=== PATIENT | male | born 1985 | race Caucasian/White ===

== ENCOUNTER 2022-05-05 12:30 | Emergency (ER) | payer SELFPAY ==
[2022-05-05 12:47] VITALS: BP 120/79; PULSE 67; RESP 16; TEMP 36.9; O2SAT 98; BMI 22.8
--- NOTE | 2022-05-05 13:07 | W.ED.PSYCHS ---
HPI - Psych General: Chief Complaint: Psychiatric Symptoms Stated Complaint: Psych eval Time Seen by Provider: 05/05/22 12:57 Source: patient and family Mode of arrival: ambulatory Limitations: no limitations History of Present Illness: Patient is a 36-year-old male who presents to ED today requesting a psychiatric evaluation for depression and what he refers to as psychosis. Patient tells me he has a longstanding history of depression. He states he is sleeping more and is having trouble with emotional lability. Patient states he is not currently suicidal or homicidal but has had thoughts of suicide over the past few weeks. He states he never had a specific plan and has never acted on suicidal thoughts previously. He states he is hearing sounds that he feels like other people cannot hear such as ringing and buzzing. Significant other in the room states he also hears words in conversations that were not spoken. He states he sees shadows of people and thinks crawling on the floor. Patient states at one point he was on medications for these issues but has not been in several years. MD complaint: other (depression, hallucinations ) History of same: Yes Relieving factors: none Exacerbating factors: none Associated symptoms: Reports auditory hallucinations, visual hallucinations and depression; Deny homicidal ideation or suicidal ideation Treatments prior to arrival: none If self harm: admits thoughts of self harm (some over the past few weeks; none currently) Review of Systems Const: Denies: fever(s) or chills Card: Denies: chest pain, palpitations, lightheadedness or syncope Resp: Denies: dyspnea GI: Denies: abdominal pain, nausea, vomiting or diarrhea Skin/Breast: Denies: rash Neuro: Denies: headache(s) Psych: Reports: depression, mood swings, sleeping more, hopelessness, visual hallucinations and auditory hallucinations; Denies: anxiety, suicidal ideation or homicidal ideation Physical Exam Const: COMMON NORMALS: no acute distress, average body habitus, patient oriented x3, no limitations, alert and well nourished GENERAL APPEARANCE: cooperative and well kempt ORIENTATION/CONSCIOUSNESS: Yes awake, Yes oriented to person, Yes oriented to place and Yes oriented to time Resp: COMMON NORMALS: normal respiratory effort and clear to auscultation bilaterally AUSCULTATION: clear to auscultation bilaterally Cardio: COMMON NORMALS: regular rate and regular rhythm RATE: regular rate RHYTHM: regular rhythm Neuro: COMMON NORMALS: patient oriented x3 SENSORIUM/ORIENTATION: Yes alert, Yes oriented to person, Yes oriented to place and Yes oriented to time Psych: COMMON NORMALS: mental status grossly normal, Normal thought process present, cooperative, speech normal, activity/motor behavior normal, denies homicidal ideation and denies suicidal ideation APPEARANCE: Yes grossly normal and Yes well kempt ATTITUDE: Yes calm ACTIVITY/MOTOR BEHAVIOR: Yes appropriate eye contact and No psychomotor agitation SPEECH: Yes normal speech MOOD & AFFECT: Yes Flat affect present THOUGHT PROCESS: Normal thought process present THOUGHT CONTENT: Yes Normal thought content present ATTENTION/CONCENTRATION: Yes attention grossly intact and Yes concentration grossly intact MEMORY/COGNITION: Yes memory grossly intact and Yes cognition grossly intact INSIGHT: Good insight present (Psych) JUDGEMENT: Good judgement present (Psych) Skin: COMMON NORMALS: no rashes or lesions noted GENERAL SKIN EXAM: no rashes or lesions noted Course Consultations: Consultation #1: Dr. Quijano-will do a phone consult on patient to assess risk of his previous SI/HI thoughts Vital Signs: Vital signs: Vital Signs Temperature 98.4 F 05/05/22 12:47 Pulse Rate 67 05/05/22 12:47 Respiratory Rate 16 05/05/22 12:47 Blood Pressure 120/79 05/05/22 12:47 Pulse Oximetry 98 05/05/22 12:47 [facility] - Psych Medical Decision Making Patient is a 36-year-old male here for complaints of depression and hallucinations. Patient told the open developer operator that he was not suicidal or homicidal. He confirmed this to me as well but did mention he had had these thoughts over the past few weeks. He has never acted on previous suicidal or homicidal thoughts. He has no high risk behaviors. I did consult with Dr. Quijano as patient initially wanted to be a voluntary admit to NPU. We were trying to assess the NPU bed situation to see if we could accommodate patient and in the meantime patient changed his mind and wanted to leave. Because of the SI/HI thoughts he has had over the past few weeks I did consult Dr. Quijano and request that he speak to the patient to make sure he thought he was stable to leave. Dr. Quijano was able to perform phone consult on patient (please see his specific note) and felt patient was not an imminent danger to himself or others at this time. Patient is free to leave the ED and he did so quickly after Dr. Quijano's consult. Lab Data : 05/05/22 14:12 05/05/22 14:12 Laboratory Results WBC 7.0 10^3/uL (4.0-10.0) 05/05/22 14:12 RBC 5.11 10^6/uL (4.1-5.3) 05/05/22 14:12 Hgb 14.7 g/dL (11.7-16.6) 05/05/22 14:12 Hct 43.3 % (42.0-52.0) 05/05/22 14:12 MCV 84.7 fl (80-94) 05/05/22 14:12 MCH 28.8 pg (28.0-34.0) 05/05/22 14:12 MCHC 33.9 g/dL (30.0-36.0) 05/05/22 14:12 RDW 12.0 % (12.1-15.1) L 05/05/22 14:12 Plt Count 235 10^3/cmm (130-400) 05/05/22 14:12 MPV 10.6 fL (7.4-10.4) H 05/05/22 14:12 Neut % (Auto) 70.5 % 05/05/22 14:12 Lymph % (Auto) 19.4 % 05/05/22 14:12 [place] % (Auto) 6.3 % 05/05/22 14:12 Eos % (Auto) 2.6 % 05/05/22 14:12 Baso % (Auto) 1.1 % 05/05/22 14:12 Neut # (Auto) 4.94 10^3/uL (1.8-7.7) 05/05/22 14:12 Lymph # (Auto) 1.4 10^3/uL (0.8-4.8) 05/05/22 14:12 [place] # (Auto) 0.4 10^3/uL (0.2-0.9) 05/05/22 14:12 Eos # (Auto) 0.2 10^3/uL (0.0-0.8) 05/05/22 14:12 Baso # (Auto) 0.1 10^3/uL (0.0-0.1) 05/05/22 14:12 Nucleated RBC % (auto) 0 % 05/05/22 14:12 Nucleated RBCs # 0.0 /100WBC 05/05/22 14:12 Sodium 138 mmol/L (136-145) 05/05/22 14:12 Potassium 4.2 mmol/L (3.5-5.1) 05/05/22 14:12 Chloride 103 mmol/L (98-107) 05/05/22 14:12 Carbon Dioxide 26 mmol/L (22-29) 05/05/22 14:12 Anion Gap 13.2 (5-19) 05/05/22 14:12 BUN 9 mg/dL (6-20) 05/05/22 14:12 Creatinine 0.9 mg/dL (0.7-1.2) 05/05/22 14:12 GFR Calculation 94.4 mL/min (90-130) 05/05/22 14:12 Glucose 94 mg/dL (65-115) 05/05/22 14:12 Calculated Osmolality 284 mOsm/kg (285-295) L 05/05/22 14:12 Calcium 9.4 mg/dL (8.5-10.5) 05/05/22 14:12 Total Bilirubin 0.4 mg/dL (0.15-1.2) 05/05/22 14:12 AST 14 U/L (0-40) 05/05/22 14:12 ALT 14 U/L (0-41) 05/05/22 14:12 Alkaline Phosphatase 103 IU/L (40-130) 05/05/22 14:12 Total Protein 7.8 g/dL (6.6-8.7) 05/05/22 14:12 Albumin 4.8 g/dL (3.5-5.2) 05/05/22 14:12 Globulin 3.0 g/dL (1.3-4.6) 05/05/22 14:12 Salicylates < 0.3 mg/dL (3-10) L 05/05/22 14:12 Urine Opiates Screen Negative ng/mL (Negative) 05/05/22 13:50 Acetaminophen < 5.0 ug/mL (10-30) L 05/05/22 14:12 Ur Barbiturates Screen Negative ng/mL (Negative) 05/05/22 13:50 Ur Phencyclidine Scrn Negative ng/mL (Negative) 05/05/22 13:50 Ur Amphetamines Screen Negative ng/mL (Negative) 05/05/22 13:50 U Benzodiazepines Scrn Negative ng/mL (Negative) 05/05/22 13:50 Urine Cocaine Screen Negative ng/mL (Negative) 05/05/22 13:50 U Marijuana (THC) Screen Negative ng/mL (Negative) 05/05/22 13:50 Ethyl Alcohol < 10 mg/dL (0-10) 05/05/22 14:12 Discharge Plan Discharge Patient Disposition: Left Against Medical Advice Clinical Impression: Depression, Hallucinations Condition: Stable Prescriptions: No Action albuterol sulfate 90 mcg/actuation Hfa Aerosol Inhaler 2 puff INHALATION QID PRN (Reason: Shortness Of Breath) 0RF Coding Level of Care Code ED Stencil Printer for Isatu Fwd Exam Detailed
[2022-05-05 14:21] LABS: Basophils # 0.1 10^3/uL (0.0-0.1); Basophils % 1.1 %; Eosinophils # 0.2 10^3/uL (0.0-0.8); Eosinophils % 2.6 %; Hematocrit 43.3 % (42.0-52.0); Hemoglobin 14.7 g/dL (11.7-16.6); Lymphocytes # 1.4 10^3/uL (0.8-4.8); Lymphocytes % 19.4 %; Mean Corpuscular HGB Conc 33.9 g/dL (30.0-36.0); Mean Corpuscular Hemoglobin 28.8 pg (28.0-34.0); Mean Corpuscular Volume 84.7 fl (80-94); Mean Platelet Volume 10.6 fL (7.4-10.4); Monocytes # 0.4 10^3/uL (0.2-0.9); Monocytes % 6.3 %; Neutrophils # 4.94 10^3/uL (1.8-7.7); Neutrophils % 70.5 %; Nucleated Red Blood Cells % 0 %; Platelet Count 235 10^3/cmm (130-400); Red Blood Count 5.11 10^6/uL (4.1-5.3)
[2022-05-05 14:49] LABS: Alanine Aminotransferase 14 U/L (0-41); Albumin Level 4.8 g/dL (3.5-5.2); Alkaline Phosphatase 103 IU/L (40-130); Anion Gap 13.2 (5-19); Aspartate Amino Transferase 14 U/L (0-40); Blood Urea Nitrogen 9 mg/dL (6-20); Calcium 9.4 mg/dL (8.5-10.5); Carbon Dioxide 26 mmol/L (22-29); Chloride 103 mmol/L (98-107); Glomerular Filtration Rate 94.4 mL/min (90-130); Glucose 94 mg/dL (65-115); Osmolality Calculated 284 mOsm/kg (285-295); Potassium 4.2 mmol/L (3.5-5.1); Sodium 138 mmol/L (136-145); Total Bilirubin 0.4 mg/dL (0.15-1.2); Total Protein 7.8 g/dL (6.6-8.7)
[2022-05-05 14:52] LABS: Acetaminophen < 5.0 ug/mL (10-30); Alcohol Level < 10 mg/dL (0-10); Salicylate < 0.3 mg/dL (3-10)
[2022-05-05 15:04] LABS: Amphetamines Screen Urine Negative (Negative); Barbiturates Screen Urine Negative (Negative); Benzodiazepines Screen Urine Negative (Negative); Cocaine Screen Urine Negative (Negative); Opiate Screen Urine Negative (Negative); PCP Screen Urine Negative (Negative); THC Screen Urine Negative (Negative)
--- NOTE | 2022-05-05 15:21 | PC.NURSE ---
PT ATTEMPTING TO LEAVE ASKED HIM TO RETURN TO HIS ROOM AND SPEAK WITH PHYSCIAN BEFORE LEAVING PT AGREED. NOTIFIED JACK SHE VERBALIZED UNDERSTANDING NO FURTHER ORDERS.
--- NOTE | 2022-05-06 04:08 | P.NPUCON_ITS ---
Providers/Reason for Consult Consulting Physican/Specialty*: Marco Antonio Quijano MD/psychiatrist Reason for Consult*: Depression and Suicidal ideation Psych Consult HPI History of Present Illness Dallas Ramirez is a 36 year old male Presented to the emergency department with the following report: Patient is a 36-year-old male who presents to ED today requesting a psychiatric evaluation for depression and what he refers to as psychosis.? Patient tells me he has a longstanding history of depression.? He states he is sleeping more and is having trouble with emotional lability.? Patient states he is not currently suicidal or homicidal but has had thoughts of suicide over the past few weeks.? He states he never had a specific plan and has never acted on suicidal thoughts previously.? He states he is hearing sounds that he feels like other people cannot hear such as ringing and buzzing.? Significant other in the room states he also hears words in conversations that were not spoken. He states he sees shadows of people and thinks crawling on the floor.? Patient states at one point he was on medications for these issues but has not been in several years. I spoke with him on the phone confirms that he has not had suicidal ideation in the last two days. He is depressed treatment. He did not want to be transferred to a different facility. He is adamant that he is safe will be persistent in pursuing outpatient treatment. He will walk into the behavioral health clinic tomorrow. He has never attempted suicide. He is not have a specific plan. He has family support. He has responded to treatment previously. Meds Home Medications and Allergies Home Medications Medication Instructions Recorded Confirmed Last Taken Type albuterol sulfate 90 mcg/actuation 2 puff INHALATION QID PRN 05/05/22 05/05/22 Unknown History aerosol inhaler Allergies Allergy/AdvReac Type Severity Reaction Status Date / Time vancomycin Allergy ALGY-Hives Verified 05/05/22 13:14 Vitals/I&O/Wt Last Vital Signs Temp 98.4 F 05/05/22 12:47 Pulse 67 05/05/22 12:47 Resp 16 05/05/22 12:47 BP 120/79 05/05/22 12:47 Pulse Ox 98 05/05/22 12:47 Weight last 48 hrs Weight 76.204 kg Data NPU : 05/05/22 14:12 05/05/22 14:12 A&P Assessment and plan (1) Depression: Status: Acute (2) Hallucinations: Status: Acute Plan This is a 36-year-old male of the past history of depression and a positive response to treatment. He understands this to be treated and pursue outpatient treatment. He denies any suicidal ideation today or yesterday. He declines transferred to A different facility. We do not have adequate grounds to hold him involuntarily. Attestations NPU Medical Necessity Statement*: He could benefit from hospitalization and would meet criteria however he refuses to be transferred to a different facility. See attending notes on medical necessity. Coding Level of Care Code Acute Lamp Assembler for Isatu Goldberg Diagnoses Depression F32.A Hallucinations R44.3
== END 2022-05-05 16:08 | disposition left against medical advice (07) ==
PROVIDERS: Emergency Provider Physician Assistant
DX: F32.A Depression, unspecified (principal); R44.3 Hallucinations, unspecified
CPT/HCPCS: 80053; 80306; 80307; 85025; 99283

== ENCOUNTER 2022-09-22 09:39 | Inpatient (IN) | payer MEDICAID, SELFPAY ==
[2022-09-22 09:45] VITALS: BP 134/82; PULSE 87; RESP 18; TEMP 36.5; O2SAT 96; BMI 24.9
[2022-09-22 10:36] LABS: Basophils # 0.1 10^3/uL (0.0-0.1); Basophils % 1.1 %; Eosinophils # 0.3 10^3/uL (0.0-0.8); Eosinophils % 4.6 %; Hematocrit 43.7 % (42.0-52.0); Hemoglobin 14.9 g/dL (11.7-16.6); Lymphocytes # 1.3 10^3/uL (0.8-4.8); Lymphocytes % 21.1 %; Mean Corpuscular HGB Conc 34.1 g/dL (30.0-36.0); Mean Corpuscular Hemoglobin 29.8 pg (28.0-34.0); Mean Corpuscular Volume 87.4 fl (80-94); Mean Platelet Volume 10.6 fL (7.4-10.4); Monocytes # 0.5 10^3/uL (0.2-0.9); Monocytes % 7.5 %; Neutrophils # 4.12 10^3/uL (1.8-7.7); Neutrophils % 65.4 %; Nucleated Red Blood Cells % 0 %; Platelet Count 212 10^3/cmm (130-400); Red Cell Distribution Width 11.9 % (12.1-15.1); White Blood Count 6.3 10^3/uL (4.0-10.0)
--- NOTE | 2022-09-22 10:39 | W.ED.PSYCHS ---
HPI - Psych General: Chief Complaint: Psychiatric Symptoms Stated Complaint: MHE Time Seen by Provider: 09/22/22 10:06 Source: patient Mode of arrival: ambulatory History of Present Illness: 36-year-old male presents emergency room with complaints of chronic auditory and visual hallucinations. He feels like they are progressively worsening. Currently takes Risperdal 1 mg in the morning and 2 at night along with Effexor he had problems with this previously used his Effexor. Evidently he was seen at [facility] earlier today had a crisis intervention and referred here. He is not homicidal or suicidal at this time. MD complaint: other (Auditory and visual hallucinations chronic) Onset (ago): month(s) Duration: constant and getting worse Relieving factors: none Exacerbating factors: none Associated psychiatric symptoms: auditory hallucinations and visual hallucinations Associated symptoms: Reports auditory hallucinations and visual hallucinations; Deny delusions, depression, homicidal ideation, suicidal ideation or racing thoughts Review of Systems Const: Denies: fever(s), chills, body aches, change in appetite, fatigue or malaise ENMT: Denies: throat pain, ear or mastoid pain, nasal discharge or nasal congestion Card: Denies: chest pain, edema, dyspnea on exertion or orthopnea Resp: Denies: dyspnea, productive cough or non-productive cough GI: Denies: abdominal pain, nausea, vomiting, hematemesis, coffee ground emesis, diarrhea, constipation, bloating, hematochezia or melena : Denies: flank pain, dysuria, urinary frequency or urinary urgency Skin/Breast: Denies: rash or pruritus Psych: Reports: visual hallucinations and auditory hallucinations; Denies: depression, suicidal ideation or homicidal ideation [facility] ED PFSH: Medical History (Updated 10/02/22 @ 14:03 by Zeke Aleman DO) Depression Schizophrenia Social History (Updated 09/22/22 @ 10:43 by Zeke Aleman DO) Smoking and tobacco status: current every day smoker Alcohol intake: never Physical Exam Const: GENERAL APPEARANCE: cooperative and comfortable ORIENTATION/CONSCIOUSNESS: Yes awake, Yes oriented to person, Yes oriented to place and Yes oriented to time HENMT: COMMON NORMALS: normocephalic, atraumatic and hearing grossly normal bilaterally HEAD & SCALP: normocephalic and atraumatic Resp: COMMON NORMALS: normal respiratory effort, No retractions, No use of accessory muscles and clear to auscultation bilaterally AUSCULTATION: clear to auscultation bilaterally Cardio: COMMON NORMALS: regular rate, regular rhythm and No murmurs present (Cardio) RATE: regular rate RHYTHM: regular rhythm GI: COMMON NORMALS: Soft to palpation and No hepatosplenomegaly present AUSCULTATION: Yes normoactive bowel sounds PALPATION: Yes Soft to palpation, No Tenderness to palpation present (GI), No Guarding due to palpation present (GI) and Yes No hepatosplenomegaly present Extremity: COMMON NORMALS: normal to inspection, capillary refill normal, no clubbing, cyanosis or edema, no calf tenderness and no pedal edema Neuro: SENSORIUM/ORIENTATION: Yes oriented to person, Yes oriented to place and Yes oriented to time Psych: THOUGHT CONTENT: No delusions Skin: COMMON NORMALS: no rashes or lesions noted GENERAL SKIN EXAM: no rashes or lesions noted Course Vital Signs: Vital signs: Vital Signs Temperature 98.1 F 10/02/22 06:00 Pulse Rate 75 10/02/22 06:00 Respiratory Rate 17 10/02/22 06:00 Blood Pressure 100/58 10/02/22 06:00 Pulse Oximetry 95 10/02/22 06:00 Oxygen Delivery Me thod 10/02/22 06:00 MDM - Psych Medical Decision Making Initially patient denied any suicidality after time of waiting to contact psychiatry to review the case patient states he is not suicidal will make arrangements for transfer there is no beds available here at this time Medical Records I reviewed the patient's medical records. Lab Data I reviewed the patient's lab results. : 09/22/22 10:24 09/22/22 10:24 Laboratory Results WBC 6.3 10^3/uL (4.0-10.0) 09/22/22 10:24 RBC 5.00 10^6/uL (4.1-5.3) 09/22/22 10:24 Hgb 14.9 g/dL (11.7-16.6) 09/22/22 10:24 Hct 43.7 % (42.0-52.0) 09/22/22 10:24 MCV 87.4 fl (80-94) 09/22/22 10:24 MCH 29.8 pg (28.0-34.0) 09/22/22 10:24 MCHC 34.1 g/dL (30.0-36.0) 09/22/22 10:24 RDW 11.9 % (12.1-15.1) L 09/22/22 10:24 Plt Count 212 10^3/cmm (130-400) 09/22/22 10:24 MPV 10.6 fL (7.4-10.4) H 09/22/22 10:24 Neut % (Auto) 65.4 % 09/22/22 10:24 Lymph % (Auto) 21.1 % 09/22/22 10:24 [place] % (Auto) 7.5 % 09/22/22 10:24 Eos % (Auto) 4.6 % 09/22/22 10:24 Baso % (Auto) 1.1 % 09/22/22 10:24 Neut # (Auto) 4.12 10^3/uL (1.8-7.7) 09/22/22 10:24 Lymph # (Auto) 1.3 10^3/uL (0.8-4.8) 09/22/22 10:24 [place] # (Auto) 0.5 10^3/uL (0.2-0.9) 09/22/22 10:24 Eos # (Auto) 0.3 10^3/uL (0.0-0.8) 09/22/22 10:24 Baso # (Auto) 0.1 10^3/uL (0.0-0.1) 09/22/22 10:24 Nucleated RBC % (auto) 0 % 09/22/22 10:24 Nucleated RBCs # 0.0 /100WBC 09/22/22 10:24 Sodium 136 mmol/L (136-145) 09/22/22 10:24 Potassium 3.8 mmol/L (3.5-5.1) 09/22/22 10:24 Chloride 100 mmol/L (98-107) 09/22/22 10:24 Carbon Dioxide 27 mmol/L (22-29) 09/22/22 10:24 Anion Gap 12.8 (5-19) 09/22/22 10:24 BUN 9 mg/dL (6-20) 09/22/22 10:24 Creatinine 1.0 mg/dL (0.7-1.2) 09/22/22 10:24 GFR Calculation 83.6 mL/min (90-130) L 09/22/22 10:24 Glucose 94 mg/dL (65-115) 09/22/22 10:24 Calculated Osmolality 280 mOsm/kg (285-295) L 09/22/22 10:24 Calcium 9.5 mg/dL (8.5-10.5) 09/22/22 10:24 Total Bilirubin 0.4 mg/dL (0.15-1.2) 09/22/22 10:24 AST 18 U/L (0-40) 09/22/22 10:24 ALT 23 U/L (0-41) 09/22/22 10:24 Alkaline Phosphatase 109 U/L (40-130) 09/22/22 10:24 Total Protein 7.1 g/dL (6.6-8.7) 09/22/22 10:24 Albumin 4.4 g/dL (3.5-5.2) 09/22/22 10:24 Globulin 2.7 g/dL (1.3-4.6) 09/22/22 10:24 Urine Color Yellow (Yellow) 09/22/22 11:55 Urine Appearance Clear (CLEAR) 09/22/22 11:55 Urine pH 7 (5-7) 09/22/22 11:55 Ur Specific [place] 1.015 (1.005-1.030) 09/22/22 11:55 Urine Protein Neg (Negative) 09/22/22 11:55 Urine Glucose (UA) Norm (Normal) 09/22/22 11:55 Urine Ketones Negative (Negative) 09/22/22 11:55 Urine Blood Neg (Negative) 09/22/22 11:55 Urine Nitrate Negative (Negative) 09/22/22 11:55 Urine Bilirubin Neg (Negative) 09/22/22 11:55 Urine Urobilinogen Norm mg/dL (Negative) 09/22/22 11:55 Ur Leukocyte Esterase Negative (Negative) 09/22/22 11:55 Salicylates 4.3 mg/dL (3-10) 09/22/22 10:24 Urine Opiates Screen Negative ng/mL (Negative) 09/22/22 11:55 Acetaminophen < 5.0 ug/mL (10-30) L 09/22/22 10:24 Ur Barbiturates Screen Negative ng/mL (Negative) 09/22/22 11:55 Ur Phencyclidine Scrn Negative ng/mL (Negative) 09/22/22 11:55 Ur Amphetamines Screen Negative ng/mL (Negative) 09/22/22 11:55 U Benzodiazepines Scrn Negative ng/mL (Negative) 09/22/22 11:55 Urine Cocaine Screen Negative ng/mL (Negative) 09/22/22 11:55 U Marijuana (THC) Screen Negative ng/mL (Negative) 09/22/22 11:55 Coronavirus 229E (PCR) Not detected (NOT DETECT) 09/22/22 12:10 SARS-CoV-2 (PCR) Not detected (NOT DETECT) 09/22/22 12:10 Discharge Plan Discharge Patient Disposition: Admitted As Inpatient Admit Provider: Kenneth Mills Clinical Impression: Suicidal ideation, Schizoaffective disorder, depressive type Condition: Stable Coding Level of Care Code ED [employer] Consultant for Isatu Fwd Exam Comprehensive
[2022-09-22 10:56] LABS: Acetaminophen < 5.0 ug/mL (10-30); Alanine Aminotransferase 23 U/L (0-41); Albumin Level 4.4 g/dL (3.5-5.2); Alkaline Phosphatase 109 U/L (40-130); Anion Gap 12.8 (5-19); Aspartate Amino Transferase 18 U/L (0-40); Blood Urea Nitrogen 9 mg/dL (6-20); Calcium 9.5 mg/dL (8.5-10.5); Carbon Dioxide 27 mmol/L (22-29); Chloride 100 mmol/L (98-107); Globulin 2.7 g/dL (1.3-4.6); Glomerular Filtration Rate 83.6 mL/min (90-130); Glucose 94 mg/dL (65-115); Osmolality Calculated 280 mOsm/kg (285-295); Potassium 3.8 mmol/L (3.5-5.1); Salicylate 4.3 mg/dL (3-10); Sodium 136 mmol/L (136-145); Total Bilirubin 0.4 mg/dL (0.15-1.2); Total Protein 7.1 g/dL (6.6-8.7)
[2022-09-22 12:16] LABS: Add Urine Microscopic? NO; Charge for UA Resulting for Rev
[2022-09-22 12:26] LABS: Amphetamines Screen Urine Negative (Negative); Barbiturates Screen Urine Negative (Negative); Benzodiazepines Screen Urine Negative (Negative); Cocaine Screen Urine Negative (Negative); Opiate Screen Urine Negative (Negative); PCP Screen Urine Negative (Negative); THC Screen Urine Negative (Negative)
[2022-09-22 12:27] LABS: Specific Gravity, Urine 1.015 (1.005-1.030); Urine Appearance Clear (CLEAR); Urine Color Yellow (Yellow); pH Urine 7 (5-7)
[2022-09-22 12:28] LABS: Bilirubin Urine Neg (Negative); Blood Urine Neg (Negative); Glucose Urine UA Norm (Normal); Ketones Urine Negative (Negative); Leukocyte Esterase Urine Negative (Negative); Nitrate Urine Negative (Negative); Protein Urine Neg (Negative); Urobilinogen Urine Norm (Negative)
--- NOTE | 2022-09-22 13:11 | ECG_ITS ---
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 Measurements Intervals [place] Rate: 66 P: 59 MS: 134 QRS: 46 QRSD: 89 T: 59 QT: 366 QTc: 384 Interpretive Statements SINUS RHYTHM No previous ECG available for comparison Electronically Signed On 09-23-2022 0:25:30 CDT by Donna Julio M.D. [email or web address]
--- NOTE | 2022-09-22 13:33 | PC.PHAR ---
Addendum entered by Mila Simental 09/22/22 13:34: PT STATES HE HAD A ANXIETY MED THAT HE DOESNT TAKE PT STATES SOME HOSPITAL FILLED FOR HIM AND HE IS UNSURE OF THE NAME Original Note: PT STATES HE TAKES CARE OF HIS OWN MEDICATIONS-PT STATES HE TAKES EFFEXOR XR 150MG QAM AND RISPERDAL 1MG QAM AND 2MG HS-PT STATES FILLED WHEN HE WAS OUT OF STATE EXT MED HISTORY DOESNT SHOW WHEN LAST FILLED
[2022-09-22 13:59] LABS: Adenovirus Not Detected (NOT DETECT); Chlamydia Pneumoniae Not Detected (NOT DETECT); Coronavirus 229E,HKU1,NL63,OC4 Not Detected (NOT DETECT); Human Metapneumovirus Not Detected (NOT DETECT); Human Rhinovirus/Enterovirus Not Detected (NOT DETECT); Influenza A Not Detected (NOT DETECT); Influenza A H1 Not Detected (NOT DETECT); Influenza A H1-2009 Not Detected (NOT DETECT); Influenza A H3 Not Detected (NOT DETECT); Influenza B Not Detected (NOT DETECT); Mycoplasma Pneumoniae Not Detected (NOT DETECT); Parainfluenza Virus Type 1 Not Detected (NOT DETECT); Parainfluenza Virus Type 2 Not Detected (NOT DETECT); Parainfluenza Virus Type 3 Not Detected (NOT DETECT); Parainfluenza Virus Type 4 Not Detected (NOT DETECT); Respiratory Syncytial Virus A Not Detected (NOT DETECT); Respiratory Syncytial Virus B Not Detected (NOT DETECT); SARS-COV-2 Not Detected (NOT DETECT)
[2022-09-22 20:25] VITALS: BP 110/77; PULSE 58; RESP 18; TEMP 36.6; O2SAT 98
[2022-09-22] MEDS: risperiDONE 1 mg Tablet 2 MG PO (21:16)
[2022-09-22 22:00] VITALS: BP 110/77; PULSE 58; RESP 18; TEMP 36.6
[2022-09-23 06:00] VITALS: BP 104/71; PULSE 67; RESP 16; TEMP 36.4; O2SAT 97
[2022-09-23] MEDS: ibuprofen 600 mg Tablet PO (08:18)
--- NOTE | 2022-09-23 08:18 | W.PM.NPUH&PS ---
Providers/Chief Complaint Admitting Physician: Kenneth Mills MD Chief Complaint: command auditory hallucinations HPI NPU History of Present Illness Dallas Ramirez is a 36 year old white male with a history of 2 recent inpatient hospitalizations in the last 3 months who was admitted to the NPU voluntarily after reporting in the emergency room at [facility] that he was hearing voices that had been more loud and intense over the past few weeks. He reports that the voices had been louder and more frequent and were telling him to hurt myself and your family does not care about you . He reports that he has been having auditory hallucinations since the age of 7 and reports that initially it had begun with hearing his name in his head only and now reports that he has been having occasional visual hallucinations out of the corner of his eye. He reports that over the past 1-1/2 years the voices have been worse. He has reported depressed mood for many years and is currently endorsing decreased appetite anhedonia impaired concentration low motivation increased tearfulness along with suicidal ideation. He did not endorse an active plan today but reports previously having been evaluated after having been on a bridge and contemplating jumping off the bridge to his . He endorses a history of panic attacks and reports a history of chronic worry. He reports that he struggles with being in crowds and in public places as he reports that he feels as if he is being watched and observed. He reports frequently feeling like something bad will happen to him and often reports being the center of attention. He had endorsed having very little amount of time spent over the last 10 years without the presence of auditory hallucinations and had also reported having only brief periods of weeks at a time of not having depression. He reports that he has been more frustrated that his medications prescribed to him had not been effective at managing his problems. He denies any drug or alcohol use. Inpatient psychiatric history: He reports having been treated at [facility] in [facility] from July 20 through July 28 and reports having been hospitalized again in [facility] for 7 days involuntarily for depression and psychosis. Outpatient psychiatric history: he reports having been treated intermittently over the last 15 years for both depression and psychosis. He reports having received follow-up recently at the [facility] in [facility]. Current medications: Risperdal 1 mg in the morning and 2 mg at night, Effexor extended release 150 mg in the morning Medical history: Asthma and heart murmur. Surgical history: none Allergies: Vancomycin Drug and alcohol history: None currently, although he had reported significant alcohol use as a child and adolescent beginning at 8 years old. Social history: He was born in [place] and raised by his biological mother with no involvement with his biological father. He reports that his mother when he was 7 years old and he went to live with his maternal aunt until adulthood. He had reported having contact with his father at the age of 5 but his father is also . He also has a brother who is from meningitis and a half sister who he has limited contact with. He reports having graduated high school and reported no learning disability. 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 He is currently and has 4 children all of whom live outside of the home. He currently lives in [facility] with his godparents. Family psychiatric history none reported Meds NPU Home Medications Medication Instructions Recorded Confirmed Last Taken Type albuterol sulfate 90 mcg/actuation 2 puff inhalation QID PRN 05/05/22 09/22/22 Unknown History aerosol inhaler Shortness Of Breath cetirizine 10 mg tablet (Zyrtec) 10 mg PO DAILY 09/22/22 09/22/22 Unknown History risperidone 1 mg tablet (Risperdal) See Rx Instructions .Route .COMPLEX 09/22/22 09/22/22 Unknown History venlafaxine 150 mg 150 mg PO QAM 09/22/22 09/22/22 Unknown History capsule,extended release 24 hr (Effexor XR) Allergies Allergy/AdvReac Type Severity Reaction Status Date / Time vancomycin Allergy ALGY-Hives Verified 09/22/22 10:36 PFS NPU PFS: Medical History (Updated 09/23/22 @ 18:27 by Kenneth Mills MD) Depression Schizophrenia Social History (Updated 09/22/22 @ 10:43 by Zeke Aleman DO) Smoking and tobacco status: current every day smoker Alcohol intake: never Mental Status Exam MSE Comments: Patient had disheveled appearance poor eye contact but was cooperative on interview. There is no evidence of any abnormal involuntary motor movements appreciated there is no evidence of tics or tremors. He did appear to have psychomotor retardation. His mood was described as depressed. His affect was mood congruent and flat. His thought process was linear logical and goal-directed. His thought content showed no evidence of homicidal ideation. Or suicidal ideation and did at times appear to be responding to internal stimuli. His attention appeared poor. His impulse control was guarded. His insight was limited. His judgment is impaired. He was alert and oriented to month year but not day or date. Past presidents was grossly intact. Vitals/I&O/Wt Last Vital Signs Temp 97.6 F 09/23/22 06:00 Pulse 67 09/23/22 06:00 Resp 16 09/23/22 06:00 BP 104/71 09/23/22 06:00 Pulse Ox 97 09/23/22 06:00 O2 Del Method 09/22/22 22:00 Weight last 48 hrs Weight 83.461 kg Data NPU : 09/22/22 10:24 09/22/22 10:24 A&P Assessment and plan (1) Schizoaffective disorder, depressive type: (2) Social anxiety disorder: Plan Patient is a 36-year-old white male with a history of anxiety psychosis and depression currently endorsing command auditory hallucinations with a report of ineffectiveness with his current medication regimen. 1.? Patient agreeable to trial of new antipsychotic to target psychosis, will initiate abilify 5mg in am and cross taper risperidone. We will also increase effexor xr to 225mg in am to target anxiety and depression. 2.? Encourage individual, group and milieu therapy 3.? Continue q-15 minute check for safety 4.? Recommend sober living treatment at the highest level of care to which the patient is willing to commit. Involuntary Hold Information 96 Hour Hold: 96 Hour Involuntary Admission: No Attestations NPU Medical Necessity Statement*: Inpatient hospitalization is medically necessary and the clinically appropriate intervention at this time. We will monitor medications and make changes as indicated. Patient will be in the hospital for over two midnights with likely length of stay of 5-7 days. Coding Level of Care Code New Pt Acute Upholstered Goods Crafter for Isatu Goldberg Patient Type New History Problem Focused Exam Problem Focused Medical Decision Making Straight Forward Diagnoses Schizoaffective disorder, depressive type F25.1 Social anxiety disorder F40.10
[2022-09-23] MEDS: cetirizine 10 mg Tablet PO (08:19)
[2022-09-23] MEDS: risperiDONE 1 mg Tablet PO (08:19)
[2022-09-23] MEDS: venlafaxine ER (24HR) 150 mg Capsule PO (08:19)
[2022-09-23 14:00] VITALS: BP 124/74; PULSE 88; RESP 15; TEMP 36.6; O2SAT 98
[2022-09-23] MEDS: risperiDONE 1 mg Tablet 2 MG PO (21:13)
[2022-09-23 22:00] VITALS: BP 94/63; PULSE 69; RESP 18; TEMP 36.7; O2SAT 96
[2022-09-24 06:00] VITALS: BP 94/63; PULSE 73; RESP 18; TEMP 36.6; O2SAT 95
[2022-09-24] MEDS: cetirizine 10 mg Tablet PO (09:45)
[2022-09-24] MEDS: venlafaxine ER (24HR) 150 mg Capsule PO (09:45)
[2022-09-24] MEDS: ARIPiprazole 10 mg Tablet 5 MG PO (09:45)
[2022-09-24 14:00] VITALS: BP 135/78; PULSE 69; RESP 16; TEMP 36.9; O2SAT 96
--- NOTE | 2022-09-24 20:21 | W.PM.NPUPNS ---
Subjective NPU Subjective: Patient is a 36-year-old white male with a history of recent inpatient hospitalizations currently endorsing psychotic symptoms and depressed mood with ineffectiveness with his current medication regimen. He continued to isolate himself on the milieu. He had reported some difficulties falling asleep. He reported some feelings of hopelessness and reported that the hallucinations continued to be of a command nature. He reports being able to contract for safety here on the milieu. He reported no side effects from his medication Abilify started today. Patient had been compliant on the milieu and was attending groups. He had reported some excess fatigue and continued to complain of low energy and low motivation. Mental Status Exam MSE Comments: Patient had disheveled appearance poor eye contact but was cooperative on interview. There is no evidence of any abnormal involuntary motor movements appreciated there is no evidence of tics or tremors. He did appear to have psychomotor retardation. His mood was described as depressed. His affect remained very flat. His thought process was linear logical and goal-directed. His thought content showed no evidence of homicidal ideation. He did endorse hearing a voice telling him to hurt himself. He did at times appear to be responding to internal stimuli. his attention appeared poor. His impulse control was guarded. His insight was limited. His judgment is impaired. He was alert and oriented to month year but not day or date. Past presidents was grossly intact. Vitals/I&O/Wt Last Vital Signs Temp 98.4 F 09/24/22 14:00 Pulse 69 09/24/22 14:00 Resp 16 09/24/22 14:00 BP 135/78 09/24/22 14:00 Pulse Ox 96 09/24/22 14:00 O2 Del Method 09/24/22 06:00 Data NPU : 09/22/22 10:24 09/22/22 10:24 A&P Assessment and plan (1) Schizoaffective disorder, depressive type: (2) Social anxiety disorder: Plan Patient is a 36-year-old white male with a history of anxiety psychosis and depression currently endorsing command auditory hallucinations with a report of ineffectiveness with his current medication regimen. 1.? Patient agreeable to trial of new antipsychotic to target psychosis, will initiate abilify 5mg in am and cross taper risperidone. We will also increase effexor xr to 225mg in am to target anxiety and depression. 2.? Encourage individual, group and milieu therapy 3.? Continue q-15 minute check for safety 4.? Recommend sober living treatment at the highest level of care to which the patient is willing to commit. Involuntary Hold Information 96 Hour Hold: 96 Hour Involuntary Admission: No Attestations NPU Medical Necessity Statement*: Inpatient hospitalization is medically necessary and the clinically appropriate intervention at this time. We will monitor medications and make changes as indicated. Patient will be in the hospital with likely length of stay 4 to 6 days. Coding Level of Care Code Established Pt Acute Clinical Lab Technologist for Isatu Goldberg Patient Type Established History Problem Focused Exam Problem Focused Medical Decision Making Straight Forward Diagnoses Schizoaffective disorder, depressive type F25.1 Social anxiety disorder F40.10
[2022-09-24] MEDS: risperiDONE 1 mg Tablet 2 MG PO (20:44)
[2022-09-25 06:00] VITALS: BP 95/58; PULSE 71; RESP 16; TEMP 36.6; O2SAT 96
[2022-09-25] MEDS: cetirizine 10 mg Tablet PO (08:49)
[2022-09-25] MEDS: venlafaxine ER (24HR) 75 mg Capsule 225 MG PO (08:49)
[2022-09-25] MEDS: ARIPiprazole 10 mg Tablet PO (08:49)
[2022-09-25 14:00] VITALS: BP 111/75; PULSE 90; RESP 20; TEMP 36.6; O2SAT 96
--- NOTE | 2022-09-25 17:36 | P.NPUPN_ITS ---
Subjective NPU Subjective: Patient is a 36-year-old white male with a history of recent inpatient hospitalizations currently endorsing psychotic symptoms and depressed mood with ineffectiveness with his current medication regimen. Patient continued to report feeling confused. He reported continuing to hear voices in his head. He had reported difficulties falling asleep. He had been struggling to complete activities of daily living. He had reported an extended history of low motivation and reported having little pleasure in completion of any activities. He had reported a loss of interest in previously enjoyed hobbies. He had reported frustration at being able to concentrate. He continued to endorse hearing a voice telling him to hurt himself although he states he would not act on them. Mental Status Exam MSE Comments: Patient had disheveled appearance poor eye contact but was cooperative on interview. There is no evidence of any abnormal involuntary motor movements appreciated. there is no evidence of tics or tremors. He did appear to have severe psychomotor retardation. His mood was described as d epressed. His affect remained very flat. His thought process was linear logical and goal-directed. His thought content showed no evidence of homicidal ideation. He did endorse hearing a voice telling him to hurt himself. He did at times appear to be responding to internal stimuli. his attention appeared poor. His impulse control was guarded. His insight was limited. His judgment is impaired. He was alert and oriented to month year but not day or date. Past presidents was grossly intact. Vitals/I&O/Wt Last Vital Signs Temp 97.9 F 09/25/22 14:00 Pulse 90 09/25/22 14:00 Resp 20 H 09/25/22 14:00 BP 111/75 09/25/22 14:00 Pulse Ox 96 09/25/22 14:00 O2 Del Method 09/25/22 06:00 Data NPU : 09/22/22 10:24 09/22/22 10:24 A&P Assessment and plan (1) Schizoaffective disorder, depressive type: (2) Social anxiety disorder: Plan Patient is a 36-year-old white male with a history of anxiety psychosis and depression currently endorsing command auditory hallucinations with a report of ineffectiveness with his current medication regimen. 1.? Patient agreeable to trial of new antipsychotic to target psychosis, will increase abilify to 10mg in am and reduce risperidone 1mg at night while adding doxepin he has 25mg at night for sleep. We will also increase effexor xr to 225mg in am to target anxiety and depression. 2.? Encourage individual, group and milieu therapy 3.? Continue q-15 minute check for safety 4.? Recommend sober living treatment at the highest level of care to which the patient is willing to commit. Involuntary Hold Information 96 Hour Hold: 96 Hour Involuntary Admission: No Attestations NPU Medical Necessity Statement*: Inpatient hospitalization is medically necessary and the clinically appropriate intervention at this time. We will monitor medications and make changes as indicated. Patient will be in the hospital with likely length of stay 4 to 6 days. Coding Level of Care Code Established Pt Acute Finance Administrator for Isatu Goldberg Patient Type Established History Problem Focused Exam Problem Focused Medical Decision Making Straight Forward Diagnoses Schizoaffective disorder, depressive type F25.1 Social anxiety disorder F40.10
[2022-09-25 20:07] VITALS: BP 109/75; PULSE 70; RESP 18; TEMP 36.6; O2SAT 97
[2022-09-25] MEDS: doxepin 25 mg Capsule PO (20:55)
[2022-09-25] MEDS: hyDROXYzine 25 mg Capsule 50 MG PO (20:55)
[2022-09-25] MEDS: risperiDONE 1 mg Tablet PO (20:55)
[2022-09-26 06:00] VITALS: BP 82/52; PULSE 72; RESP 16; TEMP 36.6; O2SAT 94
[2022-09-26] MEDS: venlafaxine ER (24HR) 75 mg Capsule 225 MG PO (09:31)
[2022-09-26] MEDS: ARIPiprazole 10 mg Tablet PO (09:31)
[2022-09-26] MEDS: cetirizine 10 mg Tablet PO (09:31)
[2022-09-26 13:36] VITALS: BP 127/88; PULSE 84; RESP 15; TEMP 36.8; O2SAT 96
--- NOTE | 2022-09-26 14:15 | P.NPUPN_ITS ---
Subjective NPU Subjective: Patient is a 36-year-old white male with a history of recent inpatient hospitalizations currently endorsing psychotic symptoms and depressed mood with ineffectiveness with his current medication regimen. Patient continues to endorse auditory hallucinations. He had isolate himself on the milieu. He reported feeling anxious about being in groups and stated that he felt chronically watched in those situations. He continued to report depression and stated that his energy was low. He reported that he was having difficulties with concentration and stated that he heard docks cracking outside of his room throughout much of the day. He also reported hearing voices at times telling him to hurt himself but stated that he would let staff know if it became worse. Mental Status Exam MSE Comments: Patient had disheveled appearance with poor eye contact but was cooperative on interview. There is no evidence of any abnormal involuntary motor movements appreciated. there is no evidence of tics or tremors. Increased speech latency was appreciated. He did appear to have severe psychomotor kathy rdation. His mood was described as depressed. His affect remained flat. His thought process was linear logical and goal-directed. His thought content showed no evidence of homicidal ideation. He did endorse hearing a voice telling him to hurt himself. He did at times appear to be responding to internal stimuli. his attention appeared poor. His impulse control was guarded. His insight was limited. His judgment is impaired. He was alert and oriented x3 today. Vitals/I&O/Wt Last Vital Signs Temp 98.3 F 09/26/22 13:36 Pulse 84 09/26/22 13:36 Resp 15 09/26/22 13:36 BP 127/88 09/26/22 13:36 Pulse Ox 96 09/26/22 13:36 O2 Del Method 09/25/22 06:00 Data NPU : 09/22/22 10:24 09/22/22 10:24 A&P Assessment and plan (1) Schizoaffective disorder, depressive type: (2) Social anxiety disorder: Plan Patient is a 36-year-old white male with a history of anxiety psychosis and depression currently endorsing command auditory hallucinations with a report of ineffectiveness with his current medication regimen. 1.? Patient agreeable to trial of new antipsychotic to target psychosis, will increase abilify to 15mg in am tommorow and continue low hello yeah risperidone 1mg at night while adding doxepi an at alert 25mg at night for sleep . We will also increase effexor xr to 225mg in am to target anxiety and depression. 2.? Encourage individual, group and milieu therapy 3.? Continue q-15 minute check for safety 4.? Recommend sober living treatment at the highest level of care to which the patient is willing to commit. Involuntary Hold Information 96 Hour Hold: 96 Hour Involuntary Admission: No Attestations NPU Medical Necessity Statement*: Inpatient hospitalization is medically necessary and the clinically appropriate intervention at this time. We will monitor medications and make changes as indicated. Patient will be in the hospital with likely length of stay 4 to 6 days. Coding Level of Care Code Established Pt Acute Radiopharmacist for Isatu Goldberg Patient Type Established History Problem Focused Exam Problem Focused Medical Decision Making Straight Forward Diagnoses Schizoaffective disorder, depressive type F25.1 Social anxiety disorder F40.10
[2022-09-26 20:07] VITALS: BP 90/56; PULSE 84; RESP 17; TEMP 36.7; O2SAT 98
[2022-09-26] MEDS: doxepin 25 mg Capsule PO (20:21)
[2022-09-26 21:41] VITALS: PULSE 85; RESP 15; O2SAT 95
[2022-09-27 06:00] VITALS: BP 110/71; PULSE 62; RESP 16; TEMP 36.6; O2SAT 95
[2022-09-27] MEDS: cetirizine 10 mg Tablet PO (08:22)
[2022-09-27] MEDS: venlafaxine ER (24HR) 75 mg Capsule 225 MG PO (08:22)
[2022-09-27] MEDS: ARIPiprazole 10 mg Tablet 15 MG PO (08:22)
[2022-09-27 14:00] VITALS: BP 126/90; PULSE 106; RESP 16; TEMP 36.4; O2SAT 95
--- NOTE | 2022-09-27 14:04 | P.NPUPN_ITS ---
Subjective NPU Subjective: Patient is a 36-year-old white male with a history of recent inpatient hospitalizations currently endorsing psychotic symptoms and depressed mood with ineffectiveness with his current medication regimen. He had continue to endorse hearing voices and sounds that were distracting to him. He reported no change in overall mood as he continued to endorse depressed mood and low energy. He also endorsed anhedonia and reported difficulties with concentration. Mental Status Exam MSE Comments: Patient had disheveled appearance with poor eye contact but was cooperative on interview. There is no evidence of any abnormal involuntary motor movements appreciated. there is no evidence of tics or tremors. Increased speech latency was prominent. He did appear to have severe psychomotor retardation. His mood was described as depressed. His affect remained flat. His thought process was linear logical and goal-directed. His thought content showed no evidence of homicidal ideation. He endorsed the continued presence of command auditory hallucinations telling him to hurt himself. He did at times appear to be responding to internal stimuli. His attention appeared poor. His impulse control was guarded. His insight was limited. His judgment is impaired. He was alert and oriented x3 Vitals/I&O/Wt Last Vital Signs Temp 97.8 F 09/27/22 06:00 Pulse 62 09/27/22 06:00 Resp 16 09/27/22 06:00 BP 110/71 09/27/22 06:00 Pulse Ox 95 09/27/22 06:00 O2 Del Method 09/26/22 21:41 Weight last 48 hrs Weight 82.191 kg Data NPU : 09/22/22 10:24 09/22/22 10:24 A&P Assessment and plan (1) Schizoaffective disorder, depressive type: (2) Social anxiety disorder: Plan Patient is a 36-year-old white male with a history of anxiety psychosis and depression currently endorsing command auditory hallucinations with a report of ineffectiveness with his current medication regimen. 1.? Patient agreeable to trial of new antipsychotic to target psychosis, will increase abilify to 15mg in am tommorow and continue low hello yeah risperidone 1mg at night while adding doxepin at 25mg at night for sleep. Continue effexor xr at 225mg in am to target anxiety and depression. 2.? Encourage individual, group and milieu therapy 3.? Continue q-15 minute check for safety 4.? Recommend sober living treatment at the highest level of care to which the patient is willing to commit. Involuntary Hold Information 96 Hour Hold: 96 Hour Involuntary Admission: No Attestations NPU Medical Necessity Statement*: Inpatient hospitalization is medically necessary and the clinically appropriate intervention at this time. We will monitor medications and make changes as indicated. Patient will be in the hospital with likely length of stay 4 to 6 days. Coding Level of Care Code Established Pt Acute Research And Development Director for [employer]g Fwd Patient Type Established History Problem Focused Exam Problem Focused Medical Decision Making Straight Forward Diagnoses Schizoaffective disorder, depressive type F25.1 Social anxiety disorder F40.10
[2022-09-27] MEDS: doxepin 25 mg Capsule PO (19:43)
[2022-09-27 21:43] VITALS: BP 112/83; PULSE 105; RESP 18; TEMP 36.6; O2SAT 97
[2022-09-28 06:00] VITALS: BP 108/75; PULSE 83; RESP 16; TEMP 36.7; O2SAT 95
[2022-09-28] MEDS: ARIPiprazole 10 mg Tablet 15 MG PO (08:58)
[2022-09-28] MEDS: cetirizine 10 mg Tablet PO (08:58)
[2022-09-28] MEDS: venlafaxine ER (24HR) 75 mg Capsule 225 MG PO (08:59)
--- NOTE | 2022-09-28 11:32 | PC.NURSE ---
PATIENT STATES HE WAS HEARING THE [employer] THEME SONG LAST NIGHT, ALTHOUGH HE KNEW IT WASN'T REAL. HE ALSO STATES HE HEARD SOMEONE CALLING HIS NAME ACROSS THE STREET. DENIES SI/HI. RATES ANXIETY ON AT A 9/10 AND DEPRESSION AT A 8/10.
[2022-09-28 14:00] VITALS: BP 121/88; PULSE 107; RESP 16; TEMP 36.8; O2SAT 97
--- NOTE | 2022-09-28 16:27 | W.PM.NPUPNS ---
Subjective NPU Subjective: Patient is a 36-year-old white male with a history of recent inpatient hospitalizations currently endorsing psychotic symptoms and depressed mood with ineffectiveness with his current medication regimen. Patient continued to report sleeping poorly. He continued to report feeling depressed. He states that he continues to hear voices. He states he was able to sleep but had frequent awakenings at night. He had reported poor appetite today. He reports continued feelings of hopelessness. He had reported significant decline in his mood over the past 2 years. Staff notes patient continued to isolate himself on the milieu. He reports struggles with being in crowds and states that he does not like being in groups at all as he feels as if people are watching him. Mental Status Exam MSE Comments: Patient had disheveled appearance with poor eye contact but was cooperative on interview. There is no evidence of any abnormal involuntary motor movements appreciated. there is no evidence of tics or tremors. His speech showed increased latency with normal volume and prosody. He continued to show evidence of significant psychomotor retardation. His mood was described as depressed. His affect remained flat. His thought process was linear logical and goal-directed. His thought content showed no evidence of homicidal ideation. He endorsed the continued presence of command auditory hallucinations telling him to hurt himself. He did at times appear to be responding to internal stimuli. His attention appeared poor. His impulse control was guarded. His insight was limited. His judgment is impaired. He was alert and oriented x3. Vitals/I&O/Wt Last Vital Signs Temp 98.2 F 09/28/22 14:00 Pulse 107 H 09/28/22 14:00 Resp 16 09/28/22 14:00 BP 121/88 09/28/22 14:00 Pulse Ox 97 09/28/22 14:00 O2 Del Method 09/26/22 21:41 Weight last 48 hrs Weight 82.191 kg Data NPU : 09/22/22 10:24 09/22/22 10:24 A&P Assessment and plan (1) Schizoaffective disorder, depressive type: (2) Social anxiety disorder: Plan Patient is a 36-year-old white male with a history of anxiety psychosis and depression currently endorsing command auditory hallucinations with a report of ineffectiveness with his current medication regimen. 1.? Continue abilify 15mg at night and continue doxepin at 25mg at night for sleep. Continue effexor xr at 225mg in am to target anxiety and depression. 2.? Encourage individual, group and milieu therapy 3.? Continue q-15 minute check for safety 4.? Recommend sober living treatment at the highest level of care to which the patient is willing to commit. Involuntary Hold Information 96 Hour Hold: 96 Hour Involuntary Admission: No Attestations NPU Medical Necessity Statement*: Inpatient hospitalization is medically necessary and the clinically appropriate intervention at this time. We will monitor medications and make changes as indicated. Patient will be in the hospital with likely length of stay 4 to 6 days. Coding Level of Care Code Established Pt Acute Model Artists' for Isatu Goldberg Patient Type Established History Problem Focused Exam Problem Focused Medical Decision Making Straight Forward Diagnoses Schizoaffective disorder, depressive type F25.1 Social anxiety disorder F40.10
[2022-09-28 20:21] VITALS: BP 109/78; PULSE 87; RESP 16; TEMP 36.7; O2SAT 96
[2022-09-28] MEDS: doxepin 25 mg Capsule PO (21:13)
[2022-09-29 06:00] VITALS: BP 93/64; PULSE 63; RESP 16; TEMP 36.8; O2SAT 96
[2022-09-29] MEDS: ARIPiprazole 10 mg Tablet 15 MG PO (08:46)
[2022-09-29] MEDS: venlafaxine ER (24HR) 75 mg Capsule 225 MG PO (08:46)
[2022-09-29] MEDS: cetirizine 10 mg Tablet PO (08:46)
[2022-09-29 14:00] VITALS: BP 112/86; PULSE 92; RESP 16; TEMP 36.8; O2SAT 96
--- NOTE | 2022-09-29 17:13 | W.PM.NPUPNS ---
Subjective NPU Subjective: Patient is a 36-year-old white male with a history of recent inpatient hospitalizations currently endorsing psychotic symptoms and depressed mood with ineffectiveness with his current medication regimen. He continued to isolate himself on the milieu. He had reported that he continued to feel depressed. He reported that he had continued to feel hopeless and states that the auditory hallucinations are a little better but are still prominent. He reported that he continued to have suicidal thoughts. He continued to report feeling unmotivated and continued to struggle with completion of any tasks. She reported having difficulties with concentration. Mental Status Exam MSE Comments: Patient had disheveled appearance with poor eye contact but was cooperative on interview. There is no evidence of any abnormal involuntary motor movements appreciated. there is no evidence of tics or tremors. His speech showed increased latency with normal volume and prosody. He continued to show evidence of significant psychomotor retardation. His mood was described as depressed. His affect remained flat. His thought process was linear logical and goal-directed. His thought content showed no evidence of homicidal ideation. He endorsed the continued presence of command auditory hallucinations telling him to hurt himself. He did at times appear to be responding to internal stimuli. His attention appeared poor. His impulse control was guarded. His insight was limited. His judgment is impaired. He was alert and oriented x3. Vitals/I&O/Wt Last Vital Signs Temp 98.3 F 09/29/22 06:00 Pulse 63 09/29/22 06:00 Resp 16 09/29/22 06:00 BP 93/64 09/29/22 06:00 Pulse Ox 96 09/29/22 06:00 O2 Del Method 09/26/22 21:41 Data NPU : 09/22/22 10:24 09/22/22 10:24 A&P Assessment and plan (1) Schizoaffective disorder, depressive type: (2) Social anxiety disorder: Plan Patient is a 36-year-old white male with a history of anxiety psychosis and depression currently endorsing command auditory hallucinations with a report of ineffectiveness with his current medication regimen. 1.? Continue abilify 15mg at night and continue doxepin at 25mg at night for sleep. Continue effexor xr at 225mg in am to target anxiety and depression. 2.? Encourage individual, group and milieu therapy 3.? Continue q-15 minute check for safety 4.? Recommend sober living treatment at the highest level of care to which the patient is willing to commit. Involuntary Hold Information 96 Hour Hold: 96 Hour Involuntary Admission: No Attestations NPU Medical Necessity Statement*: Inpatient hospitalization is medically necessary and the clinically appropriate intervention at this time. We will monitor medications and make changes as indicated. Patient will be in the hospital with likely length of stay 4 to 6 days. Coding Level of Care Code Established Pt Acute Research Assistant for [employer] Patient Type Established History Problem Focused Exam Problem Focused Medical Decision Making Straight Forward Diagnoses Schizoaffective disorder, depressive type F25.1 Social anxiety disorder F40.10
[2022-09-29 20:06] VITALS: BP 116/85; PULSE 97; RESP 16; TEMP 36.7; O2SAT 97
[2022-09-29] MEDS: doxepin 25 mg Capsule PO (20:39)
[2022-09-30 06:00] VITALS: BP 111/77; PULSE 85; RESP 16; TEMP 36.8; O2SAT 97
[2022-09-30] MEDS: OLANZapine 5 mg ODT PO (08:37)
[2022-09-30] MEDS: venlafaxine ER (24HR) 75 mg Capsule 225 MG PO (08:37)
[2022-09-30] MEDS: cetirizine 10 mg Tablet PO (08:37)
[2022-09-30] MEDS: ARIPiprazole 10 mg Tablet 15 MG PO (08:37)
[2022-09-30 14:00] VITALS: RESP 18
--- NOTE | 2022-09-30 15:59 | W.PM.NPUPNS ---
Subjective NPU Subjective: Patient is a 36-year-old white male with a history of recent inpatient hospitalizations currently endorsing psychotic symptoms and depressed mood with ineffectiveness with his current medication regimen. The patient had reported feeling more tired than usual. He states that he had received a as needed medication this morning due to increased agitation. He reports that he woke up feeling angry and reports that he was uncertain as to what had triggered this. He denied any side effects from his medication. He did report continued problems with sleep and reported depressed mood low energy and low motivation. He reported having occasional suicidal thoughts and would continue to report hearing voices telling him to hurt himself. He reported that his mood had been a little better but he continued to avoid others and reported being distracted by his thoughts intermittently throughout the day. He did not endorse visual hallucinations today. Mental Status Exam MSE Comments: Patient had disheveled appearance with poor eye contact but was cooperative on interview. There is no evidence of any abnormal involuntary motor movements appreciated. there is no evidence of tics or tremors. His speech showed continued increased latency with normal volume and prosody. He continued to show evidence of significant psychomotor retardation. His mood was described as depressed. His affect remained flat. His thought process was linear logical and goal-directed. His thought content showed no evidence of homicidal ideation. He endorsed the continued presence of command auditory hallucinations telling him to hurt himself. He did at times appear to be responding to internal stimuli. His attention appeared poor. His impulse control was guarded. His insight was limited. His judgment is impaired. He was alert and oriented x3. Vitals/I&O/Wt Last Vital Signs Temp 98.2 F 09/30/22 06:00 Pulse 85 09/30/22 06:00 Resp 16 09/30/22 06:00 BP 111/77 09/30/22 06:00 Pulse Ox 97 09/30/22 06:00 O2 Del Method 09/26/22 21:41 Data NPU : 09/22/22 10:24 09/22/22 10:24 A&P Assessment and plan (1) Schizoaffective disorder, depressive type: (2) Social anxiety disorder: Plan Patient is a 36-year-old white male with a history of anxiety psychosis and depression currently endorsing command auditory hallucinations with a report of ineffectiveness with his current medication regimen. 1.? Continue abilify 15mg at night and hold doxepin tonight (patient appears excessively sedated) Continue effexor xr at 225mg in am to target anxiety and depression. 2.? Encourage individual, group and milieu therapy 3.? Continue q-15 minute check for safety 4.? Recommend sober living treatment at the highest level of care to which the patient is willing to commit. Involuntary Hold Information 96 Hour Hold: 96 Hour Involuntary Admission: No Attestations NPU Medical Necessity Statement*: Inpatient hospitalization is medically necessary and the clinically appropriate intervention at this time. We will monitor medications and make changes as indicated. Patient will be in the hospital with likely length of stay 4 to 6 days. Coding Level of Care Code Established Pt Acute Java Scala Developer for Isatu Goldberg Patient Type Established History Problem Focused Exam Problem Focused Medical Decision Making Straight Forward Diagnoses Schizoaffective disorder, depressive type F25.1 Social anxiety disorder F40.10
[2022-09-30 20:11] VITALS: BP 105/71; PULSE 67; RESP 16; TEMP 36.7; O2SAT 97
[2022-10-01 06:00] VITALS: BP 96/62; PULSE 76; RESP 16; TEMP 36.5; O2SAT 97
[2022-10-01] MEDS: venlafaxine ER (24HR) 75 mg Capsule 225 MG PO (08:45)
[2022-10-01] MEDS: ARIPiprazole 10 mg Tablet 15 MG PO (08:46)
[2022-10-01] MEDS: cetirizine 10 mg Tablet PO (08:46)
[2022-10-01 14:00] VITALS: BP 119/82; PULSE 73; RESP 17; TEMP 36.7; O2SAT 96
[2022-10-01 15:15] VITALS: BP 119/82; PULSE 73; RESP 17; TEMP 36.7; O2SAT 96
--- NOTE | 2022-10-01 17:08 | W.PM.NPUPNS ---
Subjective NPU Subjective: Patient presented today reporting that he has been here for several days working on his psychotic symptoms with Dr. Mills. He endorsed that he feels the Abilify is helping as well as the increase in his Effexor. He reports overall he has been functioning okay and reports a plan to return to his previous residence once he is stable. We discussed discussing his case with the treatment team to explore his discharge logistics. He reported eating sleeping little better. Mental Status Exam MSE Comments: This is a well-nourished well-developed white male with hospital scrubs on with limited grooming and eye contact. There is no evidence of any abnormal involuntary motor movements except for mild psychomotor retardation. Cooperative with exam in mild distress. His speech showed continued latency with normal volume and prosody and slightly decreased rate. His mood was described as maybe a little better. His affect remained flat. His thought process was linear and mostly organized. He denied suicidal or homicidal ideations but did report continued presence of command auditory hallucinations telling him to hurt himself. There were no delusions reported but paranoia/guarded nature noted. He did at times appear to be responding to internal stimuli. Attention and concentration were limited and memory appeared mostly reliable but none were formally tested. He was alert and oriented x3. His insight was limited. His judgment was impaired and impulse control was limited. Vitals/I&O/Wt Last Vital Signs Temp 97.7 F 10/01/22 20:03 Pulse 90 10/01/22 20:03 Resp 17 10/01/22 20:03 BP 114/80 10/01/22 20:03 Pulse Ox 95 10/01/22 20:03 O2 Del Method 10/01/22 20:03 Data NPU : 09/22/22 10:24 09/22/22 10:24 A&P Assessment and plan (1) Schizoaffective disorder, depressive type: (2) Social anxiety disorder: Plan Patient is a 36-year-old white male with a history of anxiety psychosis and depression currently endorsing command auditory hallucinations with a report of ineffectiveness with his current medication regimen. 1.? Continue abilify 15mg at night and hold doxepin tonight (patient appears excessively sedated) Continue effexor xr at 225mg in am to target anxiety and depression. 2.? Encourage individual, group and milieu therapy 3.? Continue q-15 minute check for safety 4.? Recommend sober living treatment at the highest level of care to which the patient is willing to commit. Involuntary Hold Information 96 Hour Hold: 96 Hour Involuntary Admission: No Attestations NPU Medical Necessity Statement*: Inpatient hospitalization is medically necessary and the clinically appropriate intervention at this time. We will monitor medications and make changes as indicated. Likely length of stay 3-5 days. 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
[2022-10-01 20:03] VITALS: BP 114/80; PULSE 90; RESP 17; TEMP 36.5; O2SAT 95
[2022-10-01] MEDS: hyDROXYzine 25 mg Capsule 50 MG PO (21:10)
[2022-10-01] MEDS: trazodone 50 mg Tablet PO (21:10)
[2022-10-02 06:00] VITALS: BP 100/58; PULSE 75; RESP 17; TEMP 36.7; O2SAT 95
[2022-10-02] MEDS: venlafaxine ER (24HR) 75 mg Capsule 225 MG PO (09:42)
[2022-10-02] MEDS: cetirizine 10 mg Tablet PO (09:42)
--- NOTE | 2022-10-02 12:49 | W.PM.NPUPNS ---
Subjective NPU Subjective: Patient presented today reporting that he is continuing to get a little better. He endorsed that he is tolerating the Abilify at night and denied issues with his other medications. He is working with social work team on possibly returning to his previous place of residence. He reported eating sleeping fine. Mental Status Exam MSE Comments: This is a well-nourished well-developed white male with hospital scrubs on with limited grooming and eye contact. There is no evidence of any abnormal involuntary motor movements except for mild psychomotor retardation. Cooperative with exam in mild distress. His speech showed continued latency with normal volume and prosody and slightly decreased rate. His mood was described as a little better. His affect remained flat. His thought process was linear and mostly organized. He denied suicidal or homicidal. There were no delusions reported but paranoia/guarded nature noted. He did at times appear to be responding to internal stimuli. Attention and concentration were limited and memory appeared mostly reliable but none were formally tested. He was alert and oriented x3. His insight was limited. His judgment was impaired and impulse control was limited. Vitals/I&O/Wt Last Vital Signs Temp 98.1 F 10/02/22 06:00 Pulse 75 10/02/22 06:00 Resp 17 10/02/22 06:00 BP 100/58 10/02/22 06:00 Pulse Ox 95 10/02/22 06:00 O2 Del Method 10/02/22 06:00 Data NPU : 09/22/22 10:24 09/22/22 10:24 A&P Assessment and plan (1) Schizoaffective disorder, depressive type: (2) Social anxiety disorder: Plan Patient is a 36-year-old white male with a history of anxiety psychosis and depression currently endorsing command auditory hallucinations with a report of ineffectiveness with his current medication regimen. 1.? Continue abilify 15mg at night and hold doxepin. Continue effexor xr at 225mg in am to target anxiety and depression. 2.? Encourage individual, group and milieu therapy 3.? Continue q-15 minute check for safety 4.? Recommend sober living treatment at the highest level of care to which the patient is willing to commit. Involuntary Hold Information 96 Hour Hold: 96 Hour Involuntary Admission: No Attestations NPU Medical Necessity Statement*: Inpatient hospitalization is medically necessary and the clinically appropriate intervention at this time. We will monitor medications and make changes as indicated. Likely length of stay 3-4 days. Coding Level of Care Code Acute Drywall Taper for [facility] Diagnoses Schizoaffective disorder, depressive type F25.1 Social anxiety disorder F40.10
[2022-10-02 14:00] VITALS: BP 112/79; PULSE 94; RESP 18; O2SAT 94
[2022-10-02] MEDS: trazodone 50 mg Tablet PO (20:05)
[2022-10-02] MEDS: ARIPiprazole 10 mg Tablet 15 MG PO (20:05)
[2022-10-02 22:00] VITALS: BP 109/78; PULSE 91; RESP 17; TEMP 36.6; O2SAT 95
[2022-10-03 06:00] VITALS: BP 104/71; PULSE 86; RESP 17; TEMP 36.4; O2SAT 93
--- NOTE | 2022-10-03 07:19 | W.PM.NPUPNS ---
Subjective NPU Subjective: Patient presents today reporting that things are going okay. We discussed his anxiety. He has a medication at home that is as needed but he cannot recall the medication. We discussed the risks, benefits and alternatives of a trial of propranolol 10 mg p.o. 3 times daily and he understood and agreed proceed as documented in this note. We discussed his affairs that he needs to attend to and the likelihood of discharge on Wednesday. Mental Status Exam MSE Comments: This is a well-nourished well-developed white male with hospital scrubs on with limited grooming and eye contact. There is no evidence of any abnormal involuntary motor movements except for mild psychomotor retardation. Cooperative with exam in mild distress. His speech showed improved latency with normal volume and prosody and slightly decreased rate. His mood was described as getting better. His affect remained flat. His thought process was linear and mostly organized. He denied suicidal or homicidal. There were no delusions reported but paranoia/guarded nature noted. He did at times appear to be responding to internal stimuli. Attention and concentration were limited and memory appeared mostly reliable but none were formally tested. He was alert and oriented x3. His insight was limited. His judgment was impaired and impulse control was limited. Vitals/I&O/Wt Last Vital Signs Temp 97.6 F 10/03/22 06:00 Pulse 86 10/03/22 06:00 Resp 17 10/03/22 06:00 BP 104/71 10/03/22 06:00 Pulse Ox 93 10/03/22 06:00 O2 Del Method 10/03/22 06:00 Data NPU : 09/22/22 10:24 09/22/22 10:24 A&P Assessment and plan (1) Schizoaffective disorder, depressive type: (2) Social anxiety disorder: Plan Patient is a 36-year-old white male with a history of anxiety psychosis and depression currently endorsing command auditory hallucinations with a report of ineffectiveness with his current medication regimen. 1.? Continue abilify 15mg at night and hold doxepin. Continue effexor xr at 225mg in am to target anxiety and depression. Start propranolol 10 mg p.o. 3 times daily as needed. 2.? Encourage individual, group and milieu therapy 3.? Continue q-15 minute check for safety 4.? Recommend sober living treatment at the highest level of care to which the patient is willing to commit. Involuntary Hold Information 96 Hour Hold: 96 Hour Involuntary Admission: No Attestations NPU Medical Necessity Statement*: Inpatient hospitalization is medically necessary and the clinically appropriate intervention at this time. We will monitor medications and make changes as indicated. Likely length of stay 2 days. Coding Level of Care Code Acute Basin Finish Operator Tig Welder for [facility] Diagnoses Schizoaffective disorder, depressive type F25.1 Social anxiety disorder F40.10
[2022-10-03] MEDS: cetirizine 10 mg Tablet PO (09:08)
[2022-10-03] MEDS: venlafaxine ER (24HR) 75 mg Capsule 225 MG PO (09:08)
[2022-10-03 14:00] VITALS: BP 117/80; PULSE 92; RESP 16; TEMP 36.4; O2SAT 95
[2022-10-03 19:39] VITALS: BP 124/87; PULSE 95; RESP 18; TEMP 36.8; O2SAT 95
[2022-10-03] MEDS: ARIPiprazole 10 mg Tablet 15 MG PO (20:04)
[2022-10-04 06:00] VITALS: BP 100/66; PULSE 81; RESP 18; TEMP 36.6; O2SAT 96
--- NOTE | 2022-10-04 08:26 | P.NPUPN_ITS ---
Subjective NPU Subjective: Patient presents today reporting that he is feeling better on the medication. He continues to endorse a desire to discharge tomorrow and get back to his life and responsibilities. We discussed working with the treatment team tomorrow to make sure everything is on track for that to happen. Otherwise he endorsed continued improvement and has been eating and sleeping fine. Mental Status Exam MSE Comments: This is a well-nourished well-developed white male with hospital scrubs on with limited grooming and eye contact. There is no evidence of any abnormal involuntary motor movements except for mild psychomotor retardation. Cooperative with exam in no acute distress. His speech showed improved latency with normal volume and prosody and slightly decreased rate. His mood was described as better. His affect remained flat with some mild improvement. His thought process was linear and mostly organized. He denied suicidal or homicidal. There were no delusions reported but paranoia/guarded nature noted. He did at times appear to be responding to internal stimuli. Attention and conc entration were limited and memory appeared mostly reliable but none were formally tested. He was alert and oriented x3. His insight was limited. His judgment was improving and impulse control was limited, but improving. Vitals/I&O/Wt Last Vital Signs Temp 97.9 F 10/04/22 06:00 Pulse 81 10/04/22 06:00 Resp 18 10/04/22 06:00 BP 100/66 10/04/22 06:00 Pulse Ox 96 10/04/22 06:00 O2 Del Method 10/03/22 06:00 Weight last 48 hrs Weight 81.647 kg Data NPU : 09/22/22 10:24 09/22/22 10:24 A&P Assessment and plan (1) Schizoaffective disorder, depressive type: (2) Social anxiety disorder: Plan Patient is a 36-year-old white male with a history of anxiety psychosis and depression currently endorsing command auditory hallucinations with a report of ineffectiveness with his current medication regimen. 1.? Continue abilify 15mg at night and hold doxepin. Continue effexor xr at 225mg in am to target anxiety and depression. Start propranolol 10 mg p.o. 3 times daily as needed. 2.? Encourage individual, group and milieu therapy 3.? Continue q-15 minute check for safety 4.? Recommend sober living treatment at the highest level of care to which the patient is willing to commit. Involuntary Hold Information 96 Hour Hold: 96 Hour Involuntary Admission: No Attestations NPU Medical Necessity Statement*: Inpatient hospitalization is medically necessary and the clinically appropriate intervention at this time. We will monitor medications and make changes as indicated. Likely discharge tomorrow.. Coding Level of Care Code Acute Expert Witness for [facility] Diagnoses Schizoaffective disorder, depressive type F25.1 Social anxiety disorder F40.10
[2022-10-04] MEDS: cetirizine 10 mg Tablet PO (08:46)
[2022-10-04] MEDS: venlafaxine ER (24HR) 75 mg Capsule 225 MG PO (08:46)
[2022-10-04 14:00] VITALS: BP 117/83; PULSE 96; RESP 20; TEMP 36.5; O2SAT 96
[2022-10-04] MEDS: ARIPiprazole 10 mg Tablet 15 MG PO (19:41)
[2022-10-04 20:32] VITALS: BP 120/80; PULSE 76; RESP 18; TEMP 36.7; O2SAT 94
[2022-10-05 06:00] VITALS: BP 110/72; PULSE 63; RESP 16; TEMP 36.6; O2SAT 100
[2022-10-05] MEDS: cetirizine 10 mg Tablet PO (08:21)
[2022-10-05] MEDS: venlafaxine ER (24HR) 75 mg Capsule 225 MG PO (08:21)
--- NOTE | 2022-10-05 10:39 | P.NPUDS_ITS ---
Diagnoses at Discharge Discharge Diagnosis (1) Schizoaffective disorder, depressive type: Status: Acute (2) Social anxiety disorder: Status: Acute Reason for Visit Reason for Visit: command auditory hallucinations Brief History: History of Present Illness Dlalas Ramirez is a 36 year old white male with a history of 2 recent inpatient hospitalizations in the last 3 months who was admitted to the [facility] voluntarily after reporting in the emergency room at [facility] that he was hearing voices that had been more loud and intense over the past few weeks. He reports that the voices had been louder and more frequent and were telling him to hurt myself and your family does not care about you . He reports that he has been having auditory hallucinations since the age of 7 and reports that initially it had begun with hearing his name in his head only and now reports that he has been having occasional visual hallucinations out of the corner of his eye. He reports that over the past 1-1/2 years the voices have been worse. He has reported depressed mood for many years and is currently endorsing decreased appetite anhedonia impaired concentration low motivation increased tearfulness along with suicidal ideation. He did not endorse an active plan today but reports previously having been evaluated after having been on a bridge and contemplating jumping off the bridge to his . He endorses a history of panic attacks and reports a history of chronic worry. He reports that he struggles with being in crowds and in public places as he reports that he feels as if he is being watched and observed. He reports frequently feeling like something bad will happen to him and often reports being the center of attention. He had endorsed having very little amount of time spent over the last 10 years without the presence of auditory hallucinations and had also reported having only brief periods of weeks at a time of not having depression. He reports that he has been more frustrated that his medications prescribed to him had not been effective at managing his problems. He denies any drug or alcohol use. Inpatient psychiatric history: He reports having been treated at [facility] in [facility] from July 20 through July 28 and reports having been hospitalized again in [facility] for 7 days involuntarily for depression and psychosis. Outpatient psychiatric history: he reports having been treated intermittently over the last 15 years for both depression and psychosis. He reports having received follow-up recently at the [facility] in [facility]. Current medications: Risperdal 1 mg in the morning and 2 mg at night, Effexor extended release 150 mg in the morning Medical history: Asthma and heart murmur. Surgical history: none Allergies: Vancomycin Drug and alcohol history: None currently, although he had reported significant alcohol use as a child and adolescent beginning at 8 years old. Social history: He was born in [place] and raised by his biological mother with no involvement with his biological father. He reports that his mother when he was 7 years old and he went to live with his maternal aunt until adulthood. He had reported having contact with his father at the age of 5 but his father is also . He also has a brother who is from meningitis and a half sister who he has limited contact with. He reports having graduated high school and reported no learning disability. 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 He is currently and has 4 children all of whom live outside of the home. He currently lives in [facility] [place] with his godparents. Family psychiatric history none reported Hospital Course Hospital Course He slowly acclimated to the individual, group and milieu therapies.? His psychosis was fairly pronounced but was responsive to Abilify. It was titrated to 15 mg at bedtime. Additionally he received propranolol and Effexor with significant benefit. During the hospitalization he showed significant improvement and was able to contract for safety outside of the hospital prior to discharge.? During the hospitalization, patient had routine laboratory studies which were within normal limits except for few outliers.? Additionally there was a general medical evaluation which was also within normal limits and revealed no new acute processes. Discharge Summary: At the time of discharge, lethality was denied and psychosis was improving.? Mood and anxiety were well managed.? Patient endorsed a plan to avoid all drugs of abuse and follow-up with the aftercare recommendations of the treatment team.? Patient was evaluated and deemed to be absent credible lethality, and had achieved the maximum benefit from an inpatient hospitalization, so was discharge d. Involuntary Hold Information 96 Hour Hold: 96 Hour Involuntary Admission: No Mental Status Exam MSE Comments: This is a well-nourished well-developed white male with hospital scrubs on with limited grooming and eye contact. There is no evidence of any abnormal involuntary motor movements except for mild psychomotor retardation. Cooperative with exam in no acute distress. His speech showed improved latency with normal volume and prosody and slightly decreased rate. His mood was described as better. His affect remained flat with some mild improvement. His thought process was linear and mostly organized. He denied suicidal or homicidal. There were no delusions reported but paranoia/guarded nature noted. He did at times appear to be responding to internal stimuli. Attention and concentration were limited and memory appeared mostly reliable but none were formally tested. He was alert and oriented x3. His insight was limited. His judgment was improving and impulse control was limited, but improving. Discharge Data Studies Completed and Pending: Laboratory Results WBC 6.3 10^3/uL (4.0- 10.0) 09/22/22 10: RBC 5.00 10^6/uL (4.1 -5.3) 09/22/22 10:24 Hgb 14.9 g/dL (11.7-1 6.6) 09/22/22 10: Hct 43.7 % (42.0-52.0 ) 09/22/22 10:24 MCV 87.4 fl (80-94) 09/22/22 10:24 MCH 29.8 pg (28.0-34. 0) 09/22/22 10:24 MCHC 34.1 g/dL (30.0-3 6.0) 09/22/22 10:24 RDW 11.9 % (12.1-15.1 ) L 09/22/22 10:24 Plt Count 212 10^3/cmm (130 -400) 09/22/22 10: MPV 10.6 fL (7.4-10.4 ) H 09/22/22 10:24 Neut % (Auto) 65.4 % 09/22/22 10:24 Lymph % (Auto) 21.1 % 09/22/22 10:24 [place] % (Auto) 7.5 % 09/22/22 10:24 Eos % (Auto) 4.6 % 09/22/22 10:24 Baso % (Auto) 1.1 % 09/22/22 10: Neut # (Auto) 4.12 10^3/uL (1.8 -7.7) 09/22/22 10:24 Lymph # (Auto) 1.3 10^3/uL (0.8- 4.8) 09/22/22 10:24 [place] # (Auto) 0.5 10^3/uL (0.2- 0.9) 09/22/22 10:24 Eos # (Auto) 0.3 10^3/uL (0.0- 0.8) 09/22/22 10:24 Baso # (Auto) 0.1 10^3/uL (0.0- 0.1) 09/22/22 10:24 Nucleated RBC % (a uto) 0 % 09/22/22 10:24 Nucleated RBCs # 0.0 /100WBC 09/22/22 10:24 Sodium 136 mmol/L (136-1 45) 09/22/22 10:24 Potassium 3.8 mmol/L (3.5-5 .1) 09/22/22 10:24 Chloride 100 mmol/L (98-10 7) 09/22/22 10:24 Carbon Dioxide 27 mmol/L (22-29) 09/22/22 10:24 Anion Gap 12.8 (5-19) 09/22/22 10:24 BUN 9 mg/dL (6-20) 09/22/22 10:24 Creatinine 1.0 mg/dL (0.7-1. 2) 09/22/22 10:24 GFR Calculation 83.6 mL/min (90-1 30) L 09/22/22 10:24 Glucose 94 mg/dL (65-115) 09/22/22 10:24 Calculated Osmolal ity 280 mOsm/kg (285- 295) L 09/22/22 10:24 Calcium 9.5 mg/dL (8.5-10 .5) 09/22/22 10:24 Total Bilirubin 0.4 mg/dL (0.15-1 .2) 09/22/22 10:24 AST 18 U/L (0-40) 09/22/22 10:24 ALT 23 U/L (0-41) 09/22/22 10:24 Alkaline Phosphata se 109 U/L (40-130) 09/22/22 10:24 Total Protein 7.1 g/dL (6.6-8.7 ) 09/22/22 10:24 Albumin 4.4 g/dL (3.5-5.2 ) 09/22/22 10:24 Globulin 2.7 g/dL (1.3-4.6 ) 09/22/22 10:24 Urine Color Yellow (Yellow) 09/22/22 11:55 Urine Appearance Clear (CLEAR) 09/22/22 11:55 Urine pH 7 (5-7) 09/22/22 11:55 Ur Specific Gravit y 1.015 (1.005-1.0 30) 09/22/22 11:55 Urine Protein Neg (Negative) 09/22/22 11:55 Urine Glucose (UA) Norm (Normal) 09/22/22 11:55 Urine Ketones Negative (Negati ve) 09/22/22 11:55 Urine Blood Neg (Negative) 09/22/22 11:55 Urine Nitrate Negative (Negati ve) 09/22/22 11:55 Urine Bilirubin Neg (Negative) 09/22/22 11:55 Urine Urobilinogen Norm mg/dL (Negat rony) 09/22/22 11:55 Ur Leukocyte Sonia ase Negative (Negati ve) 09/22/22 11:55 Salicylates 4.3 mg/dL (3-10) 09/22/22 10:24 Urine Opiates Scre en Negative ng/mL (N egative) 09/22/22 11:55 Acetaminophen < 5.0 ug/mL (10-3 0) L 09/22/22 10:24 Ur Barbiturates Sc reen Negative ng/mL (N egative) 09/22/22 11:55 Ur Phencyclidine S crn Negative ng/mL (N egative) 09/22/22 11:55 Ur Amphetamines Sc reen Negative ng/mL (N egative) 09/22/22 11:55 U Benzodiazepines Scrn Negative ng/mL (N egative) 09/22/22 11:55 Urine Cocaine Scre en Negative ng/mL (N egative) 09/22/22 11:55 U Marijuana (THC) Screen Negative ng/mL (N egative) 09/22/22 11:55 Coronavirus 229E ( PCR) Not detected (NO T DETECT) 09/22/22 12:10 SARS-CoV-2 (PCR) Not detected (NO T DETECT) 09/22/22 12:10 Vitals: Last Vital Signs Temp 97.8 F 10/05/22 06:00 Pulse 63 10/05/22 06:00 Resp 16 10/05/22 06:00 BP 110/72 10/05/22 06:00 Pulse Ox 100 10/05/22 06:00 O2 Del Method 10/03/22 06:00 Discharge Plan Discharge Patient Disposition: Home Condition: Stable Prescriptions: New aripiprazole 15 mg tablet 15 mg PO BEDTIME 30 Days Qty: 30 1RF venlafaxine 75 mg Capsule,Extended Release 24hr 225 mg PO DAILY 30 Days Qty: 90 1RF propranolol 20 mg Tablet 20 mg PO TID PRN (Reason: Anxiety) 30 Days Qty: 90 1RF Continued albuterol sulfate 90 mcg/actuation Hfa Aerosol Inhaler 2 puff INHALATION QID PRN (Reason: Shortness Of Breath) Zyrtec 10 mg Tablet 10 mg PO DAILY Discontinued venlafaxine [Effexor XR] 150 mg Capsule,Extended Release 24hr 150 mg PO QAM risperidone [Risperdal] 1 mg Tablet See Rx Instructions .ROUTE .COMPLEX Rx Instructions: 1MG PO QAM AND 2MG PO BEDTIME No Action budesonide-formoterol [Symbicort] 80-4.5 mcg/actuation HFA aerosol inhaler 2 puff inhalation BID Qty: 10.2 1RF Discharge Orders: Discharge Order (Routine); Ordered 10/05/22 Ordered By: Go Stark Referrals: [facility] [Provider Group] - 1-3 days (Walk in from 7:30 am to 3:00 pm for Initial appointment. Your application has been sent to [facility]. ) Jorge L Bowers MD [Physician] - 10/07/22 10:00 am (Follow up) Discharge Diet: Regular Discharge Activity: Resume usual activity Patient Instructions: Schizophrenia (DC), Schizoaffective Disorder (DC), Opioid Safety, Suicidal Ideation Discharge Attestations [facility] Time Spent in Discharge Care*: less than 30 min Specific Discharge Activities: Specific discharge activities: educating patient, discussing with shoe caser/social workers/dc planners, documenting/other paperwork and evaluating patient/reviewing data Coding Level of Care Code Acute Chg FW DC note Diagnoses Schizoaffective disorder, depressive type F25.1 Social anxiety disorder F40.10
[2022-10-05 11:16] VITALS: BP 110/72; PULSE 63; RESP 16; TEMP 36.6; O2SAT 100
== END 2022-10-05 11:32 | disposition home or self-care (01) | DRG 885 ==
LOC: ER 11:28 → NP 18:24
PROVIDERS: Admitting Provider Psychiatry & Neurology Psychiatry; Emergency Provider Family Medicine; Visit Provider Psychiatry & Neurology Psychiatry
DX: F25.1 Schizoaffective disorder, depressive type (principal); F40.10 Social phobia, unspecified; F10.21 Alcohol dependence, in remission
CPT/HCPCS: 36415; 80053; 80306; 80307; 81003; 85025; 87635; 93005; 97150; 97165; 99285; G0378

== ENCOUNTER → 2022-10-20 14:16 | Outpatient (BNVA) | payer MEDICAID, SELFPAY | PROVIDERS: PCP Family Medicine; Visit Provider Nurse Practitioner Family | DX: R09.89 Other specified symptoms and signs involving the circulatory and respiratory systems (principal) | CPT/HCPCS: 87400 ==